=== PATIENT | male | born 1990 | race Hispanic/Latino ===

== ENCOUNTER 2018-07-30 21:17 | Emergency (ER) | payer MEDICAID, OTHER ==
[2018-07-30] MEDS ORDERED: METHYLPREDNISOLONE SOD SUCC 125MG/2ML VIAL ONE (21:29)
[2018-07-30] MEDS ORDERED: DiphenhydrAMINE HCL 50 MG/ML VIAL ONE (21:29)
[2018-07-30] MEDS ORDERED: FAMOTIDINE/PF 20 MG/2 ML VIAL IV ONE (21:29)
[2018-07-30] MEDS ORDERED: ALBUTEROL SULFATE 0.083% 2.5 MG/3 ML INH IH ONE (21:51)
[2018-07-30] MEDS ORDERED: PREDNISONE 20 MG TABLET ONE (22:56)
[2018-07-30] MEDS ORDERED: ONDANSETRON ODT 4 MG TAB ONE (22:56)
== END 2018-07-30 23:28 | disposition home or self-care (01) ==
LOC: EDH 21:17
DX: T78.1XXA Other adverse food reactions, not elsewhere classified, initial encounter (principal); L29.9 Pruritus, unspecified; L50.0 Allergic urticaria; X58.XXXA Exposure to other specified factors, initial encounter
CPT/HCPCS: 94640; 96374; 96375; 99283; J1200; J2930; J3490

== ENCOUNTER 2018-08-09 00:39 | Inpatient (IN) | payer SELFPAY ==
[~2018-08-09] VITALS: Ht 177.8 cm; Wt 88.5 kg
[2018-08-09 01:00] LABS: APPEARANCE,URINE Clear (CLEAR); BILIRUBIN,URINE Negative (NEGATIVE); COLOR,URINE Yellow (YELLOW); GLUCOSE, URINE (UA) Negative (NEGATIVE); KETONES,URINE Negative (NEGATIVE); LEUKOCYTE ESTERASE ,URINE Negative (NEGATIVE); NITRATE,URINE Negative (NEGATIVE); OCCULT BLOOD,URINE Large (NEGATIVE); PH,URINE 5.5 (5.0-8.0); PROTEIN,URINE POS 2+ (NEGATIVE); UROBILINOGEN,URINE 0.2 mg/dL (0.2-1.0)
[2018-08-09] MEDS ORDERED: KETOROLAC TROMETHAMINE 30MG/ML ONE (01:02)
[2018-08-09] MEDS ORDERED: ONDANSETRON HCL 4 MG/2 ML VIAL ONE (01:02)
[2018-08-09 01:08] LABS: BASOPHILS % (AUTO) 1.2 % (0.0-5.0); EOSINOPHILS % (AUTO) 0.4 % (0.0-8.0); HEMATOCRIT 45.8 % (42-54); LYMPHOCYTES % (AUTO) 19.7 % (21.0-51.0); MEAN CORPUSCULAR HEMOGLOBIN 30.6 pg (27.0-33.0); MEAN CORPUSCULAR HGB CONC 34.1 g/dL (32.0-36.0); MEAN CORPUSCULAR VOLUME 89.7 fL (79-99); MONOCYTES % (AUTO) 8.2 % (3.0-13.0); NEUTROPHILS % (AUTO) 70.5 % (40.0-77.0); PLATELET COUNT (AUTO) 200 K/uL (130-400); RED CELL DISTRIBUTION WIDTH 13.2 % (11.0-15.5); WHITE BLOOD COUNT (AUTO) 7.9 K/uL (4.8-10.8)
[2018-08-09 01:15] LABS: CREATININE 1.9 mg/dL (0.5-1.5)
[2018-08-09 01:20] LABS: ALBUMIN 4.2 g/dL (3.5-5.0); BILIRUBIN,TOTAL 0.3 mg/dL (0.2-1.0); TOTAL PROTEIN, SERUM 8.1 g/dL (6.0-8.3)
[2018-08-09 01:33] LABS: BACTERIA,URINE Few /HPF (None Seen); SQUAMOUS EPITHELIAL CELL,UR 0-2 /HPF (0-2); WBC,URINE 0-1 /HPF (0-1)
[2018-08-09] MEDS: SODIUM CHLORIDE 0.9% 1000ML 1,000 ML IV SCH ×3 (03:19→19:22)
[2018-08-09] MEDS ORDERED: ACETAMINOPHEN 325 MG TAB PO PRN (03:30)
[2018-08-09] MEDS: FAMOTIDINE/PF 20 MG/2 ML VIAL IV SCH ×2 (09:00→19:35)
[2018-08-09] MEDS ORDERED: ENOXAPARIN SODIUM 40 MG/0.4 ML SYRINGE SQ SCH (09:00)
[2018-08-09] MEDS: LEVOFLOXACIN 500 MG/D5W 100 ML 100 ML IV SCH (10:30)
[2018-08-09] MEDS ORDERED: PANTOPRAZOLE SODIUM 40 MG TABLET.DR PO ONE (10:33)
[2018-08-09] MEDS ORDERED: ENOXAPARIN SODIUM 60 MG/0.6 ML SQ ONE (10:33)
[2018-08-09] MEDS ORDERED: LEVOFLOXACIN 500 MG/D5W 100 ML 100 ML ONE (10:40)
[2018-08-09] MEDS ORDERED: METRONIDAZOLE 500MG/100ML BAG 100 ML ONE (10:41)
[2018-08-09 11:05] LABS: CREATININE 1.8 mg/dL (0.5-1.5); POTASSIUM 4.7 mmol/L (3.5-5.1)
[2018-08-09] MEDS: METRONIDAZOLE 500MG/100ML BAG 100 ML IV SCH ×2 (14:00→22:07)
--- NOTE | 2018-08-09 15:36 | NUR ---
DC Plan Patient requested CM speak to re: dcp. Per Maryuri, patient lives w/ spouse. Denies HH, provider, or DME. Independently performs ADLs. States feels safe returning home upon discharge. List of low income clinics given. Encouraged patient to [facility] w/ [facility] or [facility] [place] get [place] and then go to one of the lower priced clinics. Verbalized understanding. DCP to home. CD Addendum: 08/09/18 at 1540 by LIZZ GUTIERREZ CM Amended: Links added.
[2018-08-09 18:50] VITALS: BP 142/81
[2018-08-09 19:15] VITALS: BP 132/76
[2018-08-09] MEDS: ONDANSETRON HCL 4 MG/2 ML VIAL IV PRN (19:22)
[2018-08-10] VITALS (7 sets, daily range): BP systolic 122–145; BP diastolic 68–84
[2018-08-10] MEDS: ONDANSETRON HCL 4 MG/2 ML VIAL IV PRN ×2 (03:56→08:21)
[2018-08-10] MEDS: METRONIDAZOLE 500MG/100ML BAG 100 ML IV SCH ×3 (03:56→19:35)
[2018-08-10 04:38] LABS: HEMATOCRIT 42.6 % (42-54); MEAN CORPUSCULAR HEMOGLOBIN 30.8 pg (27.0-33.0); MEAN CORPUSCULAR HGB CONC 33.7 g/dL (32.0-36.0); MEAN CORPUSCULAR VOLUME 91.2 fL (79-99); PLATELET COUNT (AUTO) 165 K/uL (130-400); RED BLOOD CELL COUNT(AUTO) 4.67 MIL/uL (4.50-6.20); RED CELL DISTRIBUTION WIDTH 13.3 % (11.0-15.5); WHITE BLOOD COUNT (AUTO) 5.7 K/uL (4.8-10.8)
[2018-08-10 04:44] LABS: CREATININE 1.4 mg/dL (0.5-1.5); POTASSIUM 4.3 mmol/L (3.5-5.1)
[2018-08-10] MEDS: FAMOTIDINE/PF 20 MG/2 ML VIAL IV SCH ×2 (08:20→19:35)
[2018-08-10] MEDS: MORPHINE SULFATE 2 MG/ML 1ML SYG IV PRN ×2 (08:20→13:27)
[2018-08-10] MEDS: SODIUM CHLORIDE 0.9% 1000ML 1,000 ML IV SCH (09:19)
[2018-08-10] MEDS: LEVOFLOXACIN 500 MG/D5W 100 ML 100 ML IV SCH (11:10)
[2018-08-10 13:18] LABS: AMPHET/METH SCREEN,URINE NEGATIVE (NEGATIVE); BARBITURATE SCREEN, URINE NEGATIVE (NEGATIVE); BENZODIAZEPINES SCREEN,URINE NEGATIVE (NEGATIVE); CANNABINOID SCREEN,URINE POSITIVE (NEGATIVE); COCAINE SCREEN,URINE NEGATIVE (NEGATIVE); OPIATE SCREEN,URINE NEGATIVE (NEGATIVE); PHENCYCLIDINE SCREEN,URINE NEGATIVE (NEGATIVE)
[2018-08-10] MEDS: DEXTROSE 5 % AND 0.9 % NACL 1,000 ML IV SCH (18:24)
[2018-08-11 03:20] VITALS: BP 131/78
[2018-08-11] MEDS: DEXTROSE 5 % AND 0.9 % NACL 1,000 ML IV SCH ×2 (03:32→13:37)
[2018-08-11 05:08] LABS: CREATININE 1.5 mg/dL (0.5-1.5); POTASSIUM 4.1 mmol/L (3.5-5.1)
[2018-08-11 05:13] LABS: HEMATOCRIT 39.9 % (42-54); MEAN CORPUSCULAR HEMOGLOBIN 30.6 pg (27.0-33.0); MEAN CORPUSCULAR HGB CONC 33.1 g/dL (32.0-36.0); MEAN CORPUSCULAR VOLUME 92.3 fL (79-99); PLATELET COUNT (AUTO) 167 K/uL (130-400); RED BLOOD CELL COUNT(AUTO) 4.33 MIL/uL (4.50-6.20); RED CELL DISTRIBUTION WIDTH 13.3 % (11.0-15.5); WHITE BLOOD COUNT (AUTO) 4.8 K/uL (4.8-10.8)
[2018-08-11] MEDS: METRONIDAZOLE 500MG/100ML BAG 100 ML IV SCH ×3 (05:22→21:43)
[2018-08-11 08:00] VITALS: BP 143/78
[2018-08-11] MEDS: FAMOTIDINE/PF 20 MG/2 ML VIAL IV SCH ×2 (08:42→21:43)
[2018-08-11] MEDS ORDERED: ENOXAPARIN SODIUM 30 MG/0.3 ML SQ SCH (09:00)
[2018-08-11] MEDS: LEVOFLOXACIN 500 MG/D5W 100 ML 100 ML IV SCH (09:59)
[2018-08-11 11:57] VITALS: BP 134/80
[2018-08-11 16:00] VITALS: BP 121/83
[2018-08-11 19:19] VITALS: BP 124/68
[2018-08-11 23:22] VITALS: BP 141/82
[2018-08-12] MEDS: DEXTROSE 5 % AND 0.9 % NACL 1,000 ML IV SCH (01:22)
[2018-08-12 03:42] VITALS: BP 148/78
[2018-08-12 04:18] LABS: HEMATOCRIT 42.6 % (42-54); MEAN CORPUSCULAR HEMOGLOBIN 30.6 pg (27.0-33.0); MEAN CORPUSCULAR HGB CONC 33.7 g/dL (32.0-36.0); MEAN CORPUSCULAR VOLUME 90.9 fL (79-99); NUCLEATED RED BLOOD CELLS 0.1 % (0.0-0.19); PLATELET COUNT (AUTO) 182 K/uL (130-400); RED BLOOD CELL COUNT(AUTO) 4.69 MIL/uL (4.50-6.20); WHITE BLOOD COUNT (AUTO) 5.5 K/uL (4.8-10.8)
[2018-08-12 04:26] LABS: CREATININE 1.5 mg/dL (0.5-1.5); POTASSIUM 3.7 mmol/L (3.5-5.1)
[2018-08-12] MEDS: METRONIDAZOLE 500MG/100ML BAG 100 ML IV SCH (05:29)
[2018-08-12 08:00] VITALS: BP 127/70
[2018-08-12] MEDS: FAMOTIDINE/PF 20 MG/2 ML VIAL IV SCH (08:52)
--- NOTE | 2018-08-12 10:24 | NUR ---
INSTRUCTIONS DISCHARGE INSTRUCTIONS GIVEN TO PATIENT USING TEACH BACK. PATIENT WILL MAKE APPOINTMENT WITH PRIMARY MD ONCE HE GETS BACK TO HIS HOME TOWN. NO NEW PRESCRIPTIONS GIVEN. IV HAS BEEN REMOVED WITH TIP INTACT. DIRECT PRESSURE WAS APPLIED UNTIL BLEEDING WAS CONTROLLED THEN SITE COVERED WITH GAUZE AND SECURED WITH TAPE. NO QUESTIONS OR CONCERNS VOICED. NO C/O PAIN AT THIS TIME. PENDING RIDE HOME.
== END 2018-08-12 11:00 | disposition home or self-care (01) | DRG 392 ==
LOC: EDH 00:39 → OBSVTOIN 00:40 → EDHIP 00:40 → 4AH 18:28
PROVIDERS: ADMIT Hospitalist; ATTEND Hospitalist
DX: A08.4 Viral intestinal infection, unspecified (principal); N17.9 Acute kidney failure, unspecified; E86.0 Dehydration; Z91.010 Allergy to peanuts
CPT/HCPCS: 36415; 74176; 76700; 80048; 80053; 80305; 81001; 82550; 83690; 85025; 85027; 87804; G0378; J1650; J1885; J1956; J2405; J3490; J7042